=== PATIENT | female | born 2000 | race Caucasian/White ===

== ENCOUNTER 2022-08-05 13:36 | Emergency (ER) | payer MEDICAID ==
[~2022-08-05] VITALS: Ht 170.2 cm; Wt 71.0 kg
[2022-08-05 14:19] VITALS: BP 115/72
[2022-08-05] MEDS ORDERED: BUPR1FIL3 SL (14:48)
[2022-08-05] MEDS ORDERED: ONDA4TAB12 PO (14:48)
[2022-08-05] MEDS ORDERED: CIPR-202 PO (14:49)
[2022-08-05] MEDS ORDERED: METR-159 PO (14:49)
--- NOTE | 2022-08-06 09:44 | NUR ---
Received order for consult. Left message for patient.
== END 2022-08-05 15:47 | disposition home or self-care (01) ==
LOC: ER 13:37
DX: F15.10 Other stimulant abuse, uncomplicated (principal); F10.10 Alcohol abuse, uncomplicated; N76.0 Acute vaginitis; F17.200 Nicotine dependence, unspecified, uncomplicated; Y90.9 Presence of alcohol in blood, level not specified; Z88.8 Allergy status to other drugs, medicaments and biological substances; Z88.5 Allergy status to narcotic agent; Z79.899 Other long term (current) drug therapy
CPT/HCPCS: 99283

== ENCOUNTER 2022-09-03 19:58 | Emergency (ER) | payer MEDICAID ==
[~2022-09-03] VITALS: Ht 170.2 cm; Wt 68.2 kg
[~2022-09-03 19:58] MED LIST: CIPR-202 PO; ONDA4TAB12 PO
[2022-09-03 20:08] VITALS: BP 121/75
[2022-09-03] MEDS ORDERED: fentaNYL/PF 50MCG/1 ML 2ML syringe IM ONE (20:10)
[2022-09-03] MEDS: ketorolac trometh inj. 60 MG/2 ML VIAL IM ONE (20:36)
[2022-09-03] MEDS: HYDROcodone/acetaminophen 10/325mg tab PO ONE (20:37)
[2022-09-03] MEDS ORDERED: HYDR-3972 PO (21:55)
[2022-09-03] MEDS: TETanus/Pertussis (Acell)/Diphther VAC/PF (Tdap-Adult) 0.5ml syringe IMVAC ONE (21:59)
--- NOTE | 2022-09-03 22:05 | NUR ---
WOUND CLEANED AND IRR 250 ML NACL STERI STRIP AND FINGER DRESSING APPLIED
== END 2022-09-03 22:08 | disposition home or self-care (01) ==
LOC: ER 19:59
DX: S67.02XA Crushing injury of left thumb, initial encounter (principal); S61.012A Laceration without foreign body of left thumb without damage to nail, initial encounter; F15.20 Other stimulant dependence, uncomplicated; F11.90 Opioid use, unspecified, uncomplicated; Z88.5 Allergy status to narcotic agent; Z88.8 Allergy status to other drugs, medicaments and biological substances; X58.XXXA Exposure to other specified factors, initial encounter; Y93.89 Activity, other specified; Y92.89 Other specified places as the place of occurrence of the external cause; Y99.8 Other external cause status
CPT/HCPCS: 29130; 73140; 90471; 90715; 96372; 99284; J1885; A6449

== ENCOUNTER 2022-12-29 15:01 | Emergency (ER) | payer MEDICAID ==
[~2022-12-29] VITALS: Ht 170.2 cm; Wt 72.0 kg
[~2022-12-29 15:01] MED LIST changes: -CIPR-202 PO; +ONDA8TAB13 PO
[2022-12-29 15:06] VITALS: BP 95/65
[2022-12-29] MEDS ORDERED: SULF1TAB49 PO (16:16)
[2022-12-29] MEDS ORDERED: AMOX-117 PO (16:16)
[2022-12-29] MEDS ORDERED: amox tr/potassium clavulanate 875/125mg TAB PO ONE (16:20)
[2022-12-29] MEDS ORDERED: sulfamethoxazole/trimethoprim DS (800/160mg) tablet PO ONE (16:20)
== END 2022-12-29 16:30 | disposition home or self-care (01) ==
LOC: ER 15:01
DX: L03.213 Periorbital cellulitis (principal); F15.10 Other stimulant abuse, uncomplicated; F11.10 Opioid abuse, uncomplicated; Z88.6 Allergy status to analgesic agent; Z88.5 Allergy status to narcotic agent; Z79.899 Other long term (current) drug therapy
CPT/HCPCS: 99283

== ENCOUNTER 2024-02-16 12:40 | Outpatient (CLI) | payer MEDICAID ==
[~2024-02-16 12:40] MED LIST changes: +ONDA-243 PO; +ONDA-245 PO; -ONDA4TAB12 PO; -ONDA8TAB13 PO
== END 2024-02-16 23:59 | disposition home or self-care (01) ==
LOC: RAD 12:40
PROVIDERS: ATTEND Physician Assistant
DX: I49.8 Other specified cardiac arrhythmias (principal); F11.20 Opioid dependence, uncomplicated
CPT/HCPCS: 93005

== ENCOUNTER 2024-03-05 13:39 | Emergency (ER) | payer MEDICAID | END 2024-03-05 15:15 | disposition left against medical advice (07) | LOC: ER 13:39 | DX: N76.0 Acute vaginitis (principal); Z53.21 Procedure and treatment not carried out due to patient leaving prior to being seen by health care provider; Z88.8 Allergy status to other drugs, medicaments and biological substances ==